=== PATIENT | female | born 1975 | race African-American/Black ===

== ENCOUNTER 2020-01-04 15:07 | Outpatient (REF) | payer OTHER, SELFPAY ==
[2020-01-04 16:39] LABS: MANUAL DIFF FLAG NO
[2020-01-04 16:41] LABS: Basophils Percent Auto 0.5 % (0-2); Eosinophils Absolute Auto 0.2 X10*3/uL (0.0-0.4); Eosinophils Percent Auto 2.7 % (0-4); Hematocrit 37.5 % (37-47); Hemoglobin 12.1 g/dl (12.0-16.0); Imm Gran Abs Auto 0.02 X10*3/uL (0.00-0.03); Imm Gran Pct Auto 0.3 % (0.0-0.4); Lymphocytes Absolute Auto 2.5 X10*3/uL (1.2-4.9); Lymphocytes Percent Auto 39.6 % (20-40); Mean Corpuscular HGB Conc 32.3 g/dl (31.0-35.0); Mean Corpuscular Hemoglobin 29.6 pg (27.0-33.0); Mean Corpuscular Volume 91.7 fL (80-98); Monocytes Absolute Auto 0.4 X10*3/uL (0.1-1.2); Monocytes Percent Auto 6.5 % (2-11); Neutrophils Absolute Auto 3.2 X10*3/uL (2.0-8.3); Neutrophils Percent Auto 50.4 % (45-73); Platelet Count 280 X10*3/uL (160-400); Red Blood Count 4.09 X10*6/uL (4.20-5.50); Red Cell Distribution Width 12.9 % (11.0-16.0); White Blood Count 6.3 X10*3/uL (4.8-10.8)
[2020-01-04 17:07] LABS: Anion Gap 12 (12-20); Blood Urea Nitrogen 17 mg/dL (9-16); Calcium 9.5 mg/dL (8.4-10.2); Carbon Dioxide 27 mmol/L (22-29); Chloride 103 mmol/L (96-108); Estimated Glomerular Filt Rate > 60; Glucose Random 90 mg/dL (60-115); Potassium 4.2 mmol/l (3.3-5.1); Sodium 138 mmol/L (135-145)
[2020-01-04 17:36] LABS: Erythrocyte Sedimentation Rate 6 MM/HR (0-20)
== END 2020-01-04 15:08 | disposition home or self-care (01) ==
LOC: HO.LAB 15:07
PROVIDERS: PCP Internal Medicine; Visit Provider Hospitalist
DX: J45.909 Unspecified asthma, uncomplicated (principal); J30.9 Allergic rhinitis, unspecified
CPT/HCPCS: 36415; 80048; 82785; 85025; 85652; 86003

== ENCOUNTER 2020-01-14 15:52 | Outpatient (REF) | payer OTHER, SELFPAY ==
--- NOTE | 2020-01-14 17:47 | PFT_ITS ---
Forced vital capacity, FEV1, RNQ32-60, and MVV are all normal. Post bronchodilator therapy, there is no significant change. Total lung capacity and residual volume normal. Diffusion capacity normal. CONCLUSION: Normal pulmonary function test. No evidence of obstructive or restrictive pulmonary disorder. Debbie Holden MD [facility] / [id number]
== END 2020-01-14 15:53 | disposition home or self-care (01) ==
LOC: HO.RESP 15:52
PROVIDERS: PCP Internal Medicine; Visit Provider Hospitalist
DX: J45.40 Moderate persistent asthma, uncomplicated (principal)
CPT/HCPCS: 94060; 94727; 94729

== ENCOUNTER → 2020-02-07 15:39 | Outpatient (BNVA) | payer OTHER, SELFPAY | PROVIDERS: PCP Internal Medicine; Visit Provider Hospitalist | DX: Z76.89 Persons encountering health services in other specified circumstances (principal) ==

== ENCOUNTER → 2020-08-07 15:37 | Outpatient (BNVA) | payer OTHER, SELFPAY | PROVIDERS: PCP Internal Medicine; Visit Provider Hospitalist | DX: J45.909 Unspecified asthma, uncomplicated (principal) ==

== ENCOUNTER → 2021-02-15 15:38 | Outpatient (BNVA) | payer OTHER, SELFPAY | PROVIDERS: PCP Internal Medicine; Visit Provider Hospitalist | DX: J45.909 Unspecified asthma, uncomplicated (principal) ==

== ENCOUNTER → 2021-05-18 14:57 | Outpatient (REF) | payer OTHER, SELFPAY ==
--- NOTE | 2021-05-18 15:31 | ECG_ITS ---
Test Reason : VENTRICULAR PREMATURE DEPOLARIZATION Blood Pressure : / mmHG Vent. Rate : 052 BPM Atrial Rate : 052 BPM P-R Int : 172 ms QRS Dur : 084 ms QT Int : 424 ms P-R-T Axes : 066 046 053 degrees QTc Int : 394 ms Sinus bradycardia Junctional ST depression, probably normal Borderline ECG No previous ECGs available Referred By: Todd Lanier Electronically Signed By:NOHELIA PLATT MD
== END ==
LOC: HO.CARD 14:57
PROVIDERS: PCP Internal Medicine; Visit Provider Hospitalist
DX: I49.3 Ventricular premature depolarization (principal); J45.909 Unspecified asthma, uncomplicated
CPT/HCPCS: 93005

== ENCOUNTER 2022-08-29 15:35 | Outpatient (REF) | payer OTHER, SELFPAY ==
--- NOTE | ~2022-08-29 | XR_ITS ---
At 8 EXAMINATION: XR SINUSES CLINICAL INFORMATION: Chronic sinusitis COMPARISON: None available. TECHNIQUE: 4 views of the sinuses were obtained. FINDINGS: Possible asymmetric air-fluid level in the left maxillary sinus when compared with the right. Evaluation limited due to overlying bony structures. XR/XR sinus min 3V IMPRESSION: Possible asymmetric air-fluid level in the left maxillary sinus when compared with the right. Dedicated CT scan of the paranasal sinuses is strongly recommended for further evaluation as CT scan is much more sensitive for detection of intracranial pathology such as that involving the paranasal sinuses.
--- NOTE | ~2022-08-29 | XR_ITS ---
EXAMINATION: XR CHEST CLINICAL INFORMATION: Chronic sinusitis. COMPARISON: None available. TECHNIQUE: 2 views of the chest were obtained. FINDINGS: The lungs are well expanded. No focal consolidation. No pleural effusion. Cardiac silhouette is within normal limits. XR/XR chest 2V IMPRESSION: No acute abnormality.
[2022-08-29 16:24] LABS: MANUAL DIFF FLAG NO
[2022-08-29 17:04] LABS: Basophils Percent Auto 0.8 % (0-2); Eosinophils Absolute Auto 0.1 X10*3/uL (0.0-0.4); Eosinophils Percent Auto 1.9 % (0-4); Hematocrit 37.2 % (37.0-47.0); Hemoglobin 11.9 g/dl (12.0-16.0); Imm Gran Abs Auto 0.01 X10*3/uL (0.00-0.03); Imm Gran Pct Auto 0.2 % (0.0-0.4); Lymphocytes Absolute Auto 2.5 X10*3/uL (1.2-4.9); Lymphocytes Percent Auto 48.9 % (20-40); Mean Corpuscular Hemoglobin 29.4 pg (27.0-33.0); Mean Corpuscular Volume 91.9 fL (80.0-98.0); Monocytes Absolute Auto 0.3 X10*3/uL (0.1-1.2); Monocytes Percent Auto 6.4 % (2-11); Neutrophils Absolute Auto 2.2 x10*3/uL (2.0-8.3); Neutrophils Percent Auto 41.8 % (45-73); Platelet Count 322 X10*3/uL (160-400); Red Blood Count 4.05 X10*6/uL (4.20-5.50); White Blood Count 5.2 X10*3/uL (4.8-10.8)
[2022-08-29 17:56] LABS: Erythrocyte Sedimentation Rate 7 MM/HR (0-20)
[2022-09-03 18:18] LABS: Immunoglobulin E 8 kU/L (<OR=114)
== END 2022-08-29 15:36 | disposition home or self-care (01) ==
LOC: HO.LAB 15:35
PROVIDERS: PCP Registered Nurse; Visit Provider Hospitalist
DX: J45.40 Moderate persistent asthma, uncomplicated (principal); J01.40 Acute pansinusitis, unspecified; I49.3 Ventricular premature depolarization; J30.9 Allergic rhinitis, unspecified
CPT/HCPCS: 36415; 70220; 71046; 82785; 85025; 85652

== ENCOUNTER 2022-08-29 15:35 | Outpatient (AMB) | payer OTHER, SELFPAY ==
--- NOTE | 2022-08-29 15:36 | A.OFFVIS_ITS ---
Intake Vital Signs 08/29/22 15:37 Height 5 ft 8 in Weight 199 lb 8.293 oz BMI 30.3 BP 128/66 Blood Pressure Location Rt brachial Position Sitting Pulse 61 Pulse Source Pulse Oximeter Pulse Oximetry (%) 99 Oxygen Delivery Method Room Air Intake Visit Reasons: Asthma Allergies No Known Allergies Allergy (Verified 08/29/22 15:41) HPI HPI Comments History of Present Illness Details The patient is a 47-year-old woman with a known history of childhood asthma. She has had asthma throughout her life. As a child the patient did have significant allergies in did require allergy shots. Subsequently stop them after several years. She has continued with uefb-pct-auqcfqf allergy medications in addition to using Singulair. The patient has had a rescue inhaler that she has use off and on. However, lately in the last several months she has noticed that she has needed the rescue inhaler at least couple times a day. She has been developing more episodes of wheezing [id number]-wd-[id number] severity. Associated with coughing. Her rescue inhaler is partially helpful. She has never used a maintenance inhaler. She has not had any recent allergy testing. She does have a dog at home and she knows she has allergies to cats. Denies any mold in the basement or any other fumes or toxins. 02/07/2020 the patient is here for pulmonary follow-up visit. Overall she is doing a little better. She has been using the Symbicort typically daily or twice a day. She is also using the singular at nighttime. Her nasal congestion is a little better with the Astelin nasal spray. But, she hates the after taste that makes her gag. She tries to use it once a day to minimize her side effects. She still having a cough in usually is worsened by the fact that she has to wear mask. She did undergo her pulmonary function studies which demonstrated normal lung mechanics. She did feel better after the nebulizer although no significant improvement noted the post bronchodilator numbers. That being said may have been the fact that she had used her Symbicort and we have may not have seen a great significant benefit at that moment. Therefore, nebulized therapy will be provided. We also looked at her blood work demonstrating just a slight allergy to dogs. Otherwise no significant allergies in her IgE level was within normal. The patient denies any reflux disease. Will continue treating her nasal congestion in the hopes of improving her cough and clearing her throat. She has been on an TINA-inhibitor and she understands that that can decrease her cough threshold. However, she takes a small dose she has been tolerating the therapy for long time. 08/07/2020 the patient is here for a pulmonary follow up visit. overall the patient is doing better from a respiratory status. She continues uses Symbicort twice a day. She has not had to use her short-acting beta agonist. She still complains of nasal congestion and clearing of the throat. Moderate severity. The Astelin nasal spray has been helpful. We did talk about the Neti bottle. I did instruct her how to use it with bilious. She will use distilled water in specially at nighttime She can rinse her nasal passages sinuses prior to sleep with the hope that she will feel better in the morning. In the meantime if she feels like she has a sure retention she can use the triple nasal spray as needed. Again, reviewed her allergies in has allergies to dogs and she does have a dog at home. She also has likely other allergies although the allergy testing was not significant. If the patient would like additional testing I will refer her to an roofer metal to do proper allergy testing. 02/15/2021 the patient is here for sick visit. The patient went to a wedding sometime before [place]. Afterwards she started developing URI like symptoms in addition to sinus congestion postnasal drip. She has been coughing more. She has tried gbeq-rbh-gwwpviy medications without any significant improvement. Because she takes care of her daughter who has special needs she has been testing with COVID-19 antigen test on a daily basis and they have been negative. The patient also has at PCR testing which have been negative. The patient also denies any fevers or chills. She has not lost her taste or smell. The patient also states that even prior to getting ill with this upper respiratory illness and sinusitis she has been noticing increasing chest tightness. She feels like the Symbicort does not cover her the 12 hours. Therefore will be reasonable to try her on additional respiratory medications. Will be reasonable to switch over from Symbicort to Trelegy. 05/18/2021 the patient is here for a pulmonary follow-up visit. She still feels about the same. Still having sinus congestion and postnasal drip. A lot of clearing of the throat. She does use the Astelin nasal spray and also the ipratropium. Will go ahead and switch her to Dymista and started the Astelin nasal spray for better coverage. Also we did go over a video however used it 90 bottle effectively for sinus rinsing at nighttime. She is going to consider starting this as well. She did try the trilogy inhaler but it did not work well for her. She went back on the Symbicort 84.5. We can also increase that dose to the 160 dose if she continues to be symptomatic. the patient also states that she has recovered from COVID-19 which she had last month. She did not require hospitalizations in her symptoms were minimal. Still she started noticing increasing palpitations since then. She does have a smart watch and she can detect that they were PVCs. The patient will undergo an EKG today. If her symptoms worsen she may need additional testing. At this point she is trying to cut down stimulants. will continue her current respiratory regimen as is until her palpitations improve. 08/29/2022 the patient is here for pulmonary follow-up visit. She continues to have significant sinus pressure and congestion. She has also has a worsening cough. Also complains of chest tightness. Wuaj-ct-xnshektq severity. The patient has not responded completely to her current respiratory regimen. Will go ahead and maximize her respiratory therapy by adding a muscarinic antagonist. Also appears to have a component of sinusitis. Will go ahead and request chest x-rays and also sinus x-rays to further evaluate the symptoms. If the patient is no better she will benefit from an ENT referral in addition to potential sinus CT scan. FORMER[facility], [facility] Medical History (Updated 05/18/21 @ 15:22 by Todd Lanier MD) Asthma Chronic allergic rhinitis PVC (premature ventricular contraction) Sinusitis Family History (Updated 01/05/20 @ 11:15 by Todd Lanier MD) Other Asthma Social History Patient Tobacco Use Status: Never used Tobacco Review of Systems Const Denies night sweats ENT Denies change in voice, Denies lip swelling, Denies mouth pain, Reports nasal congestion, Reports nasal discharge, Reports post nasal drip, Reports sinus pressure and Denies tongue swelling Card Denies chest pain Resp Reports chest congestion, Reports cough and Reports wheezing GI Denies abdominal pain Musc Denies no additional complaints Neuro Denies Neuro-related abnormal movements Psych Denies no additional complaints Sim/Lymph Denies easy bleeding and Denies lymphadenopathy Aller/Immun Denies lip swelling, Denies tongue swelling and Reports wheezing Physical Exam Vital Signs: Last Vital Signs Pulse 61 08/29/22 15:37 BP 128/66 08/29/22 15:37 Pulse Ox 99 08/29/22 15:37 Oxygen Delivery Method Room Air 08/29/22 15:37 BMI result Body Mass Index 30.3 Const General: alert HEENT General nose exam: Nasal discharge present and no epistaxis Neck Neck: Yes normal visual inspection, Yes full ROM and Yes no lymphadenopathy Chest Chest palpation & inspection: normal inspection of the chest Resp Auscultation: no wheezes and diminished lung sounds Cardio Rate: regular rate Rhythm: regular rhythm Heart sounds: S1 normal heart sound present and S2 normal heart sound present GI Palpation (GI): Soft to palpation and nontender Auscultation: normal bowel sounds Skin General skin exam: rashes and/or lesions noted Assessment & Plan Assessment & Plan (1) Sinusitis: Code(s): J32.9 - Chronic sinusitis, unspecified Qualifiers: Chronicity: subacute Sinusitis location: pansinusitis Qualified Code(s): J01.40 - Acute pansinusitis, unspecified (2) Chronic allergic rhinitis: Comment: complicated by epistaxis due to nasal steroids Code(s): J30.9 - Allergic rhinitis, unspecified (3) Asthma: Code(s): J45.909 - Unspecified asthma, uncomplicated Qualifiers: Asthma complication type: uncomplicated Asthma persistence: persistent Asthma severity: moderate Qualified Code(s): J45.40 - Moderate persistent asthma, uncomplicated (4) PVC (premature ventricular contraction): Code(s): I49.3 - Ventricular premature depolarization Plan continue Symbicort twice a day, consider increase to 160/4.5 if no better Add Spiriva Doxycycline CXR/sinus xray short-acting beta agonist as needed Dymista ipratropium nasal spray as needed for congestion netti bottle rinsing at nighttime with distilled water Bloodwork to evaluate for biologic therapy follow-up 3-4 months Orders: Orders Immunoglobulin E 08/29/22 J32.9 - Chronic sinusitis, unspecified, J45.909 - Unspecified asthma, uncomplicated, J30.9 - Allergic rhinitis, unspecified Complete Blood Count Auto Diff 08/29/22 J32.9 - Chronic sinusitis, unspecified, J45.909 - Unspecified asthma, uncomplicated, J30.9 - Allergic rhinitis, unspecified Erythrocyte Sedimentation Rate 08/29/22 J32.9 - Chronic sinusitis, unspecified, J45.909 - Unspecified asthma, uncomplicated, J30.9 - Allergic rhinitis, unspecified XR chest 2V 08/29/22 J32.9 - Chronic sinusitis, unspecified, J45.909 - Unspecified asthma, uncomplicated, J30.9 - Allergic rhinitis, unspecified XR sinus min 3V 08/29/22 J32.9 - Chronic sinusitis, unspecified, J45.909 - Unspecified asthma, uncomplicated, J30.9 - Allergic rhinitis, unspecified Medications: New tiotropium bromide 2.5 mcg/actuation (Spiriva Respimat) 2 puffs inhalation DAILY 1 ea 11RF 30 days doxycycline monohydrate 100 mg PO BID 28 tabs 0RF 14 days Changed From ipratropium bromide 2 sprays intranasal TID PRN 15 mL 0RF for allergies To ipratropium bromide 2 sprays intranasal TID PRN 15 mL 11RF for allergies Coding Level of Care Code Est Pt Level 4 (68014) Diagnoses Sinusitis J01.40 Chronicity: subacute Sinusitis location: pansinusitis Chronic allergic rhinitis J30.9 Asthma J45.40 Asthma complication type: uncomplicated Asthma persistence: persistent Asthma severity: moderate PVC (premature ventricular contraction) I49.3 Time Spent (min) 18
[2022-08-29 15:37] VITALS: BP 128/66; PULSE 61; O2SAT 99; BMI 30.3
== END 2022-09-02 09:36 | disposition home or self-care (01) ==
PROVIDERS: PCP Registered Nurse; Visit Provider Hospitalist
DX: J01.40 Acute pansinusitis, unspecified (principal); J30.9 Allergic rhinitis, unspecified; J45.40 Moderate persistent asthma, uncomplicated; I49.3 Ventricular premature depolarization
CPT/HCPCS: 99214